=== PATIENT | male | born 1935 | race Hispanic/Latino ===

== ENCOUNTER 2019-11-05 | Emergency (ER) | payer MEDICARE, MEDICAID ==
[~2019-11-05] MED LIST: AMLODIPINE10 MG OR; ASA LO-DOSE81 MG OR; HYDROCO/APAP1 T10 OR; KEFLEX500 MG OR; LISINOPRIL20 MG OR; LISINOPRIL40 MG OR; LOPRESSOR OR; LORTAB/VICODIN1 TAB OR; NAPROSYN500 MG OR; PEPCID40 MG OR; PLAVIX75 MG OR; SIMVASTATIN20 MG OR; TOPROL XL25 MG OR; ULTRAM50 MG OR; VICODIN OR; ZOCOR20 MG OR
[2019-11-05] MEDS ORDERED: MINIPRESS2 M1 PO (10:24)
== END 2019-11-05 10:16 | disposition home or self-care (01) ==
PROC: 0T9B70Z Drainage of Bladder with Drainage Device, Via Natural or Artificial Opening (ICD-10-PCS; principal; 2019-11-05)
DX: R33.9 Retention of urine, unspecified (principal); I10 Essential (primary) hypertension; R31.9 Hematuria, unspecified

== ENCOUNTER 2019-11-05 20:01 | Emergency (ER) | payer MEDICARE, MEDICAID ==
[~2019-11-05 20:01] MED LIST changes: +MINIPRESS2 M1 PO
[2019-11-05 20:40] VITALS: BP 130/71
== END 2019-11-05 20:40 | disposition home or self-care (01) ==
LOC: ED 20:01
DX: R31.9 Hematuria, unspecified (principal); R33.9 Retention of urine, unspecified; I10 Essential (primary) hypertension

== ENCOUNTER 2019-11-10 | Emergency (ER) | payer MEDICARE, MEDICAID ==
[2019-11-10 17:55] LABS: BASO% 1 % (0-3); EOS% 3 % (0-8); IMMATURE GRANULOCYTES 0.3 % (0.0-5.0); LYMPH% 14 % (15-41); MEAN CORPUSCULAR HGB 31.2 pG CALC (26.0-32.0); MEAN CORPUSCULAR HGB CONC 32.1 g/L CALC (32.0-36.0); MONO% 9 % (2-13); NEUT# 5.51 thou/uL (1.82-7.42); NEUT% 73 % (42-76); PLATELET COUNT 184 thou/uL (130-400); RED BLOOD COUNT 2.76 mill/uL (4.70-6.10); RED CELL DISTRI WIDTH 12.7 % (11.5-15.5)
[2019-11-10 17:56] LABS: HEMATOCRIT 26.8 % (39.0-50.0); HEMOGLOBIN 8.6 g/dl (14.0-18.0); MEAN CELL VOLUME 97.1 fL CALC (80.0-100.0)
[2019-11-10 18:17] LABS: C-REACTIVE PROTEIN 4.3 mg/dL (0-0.9)
[2019-11-10 18:18] LABS: ALBUMIN 3.3 g/dL (3.2-5.0); BILIRUBIN, TOTAL 0.5 mg/dL (0.0-1.4); CREATININE 2.7 mg/dL (0.7-1.3); TOTAL PROTEIN 6.5 g/dL (6.3-8.2)
[2019-11-10] MEDS ORDERED: KEFLEX500 M1 PO (20:32)
== END 2019-11-10 20:49 | disposition home or self-care (01) ==
DX: L03.116 Cellulitis of left lower limb (principal); E86.0 Dehydration; I10 Essential (primary) hypertension; Z95.5 Presence of coronary angioplasty implant and graft

== ENCOUNTER 2019-11-13 | Emergency (ER) | payer MEDICARE, MEDICAID ==
[~2019-11-13] MED LIST changes: +KEFLEX500 M1 PO
[2019-11-13 07:02] LABS: HEMATOCRIT 27.9 % (39.0-50.0); HEMOGLOBIN 9.1 g/dl (14.0-18.0); IMMATURE GRANULOCYTES 0.3 % (0.0-5.0); MEAN CELL VOLUME 95.2 fL CALC (80.0-100.0); MEAN CORPUSCULAR HGB 31.1 pG CALC (26.0-32.0); MEAN CORPUSCULAR HGB CONC 32.6 g/L CALC (32.0-36.0); NEUT# 7.73 thou/uL (1.82-7.42); RED BLOOD COUNT 2.93 mill/uL (4.70-6.10); RED CELL DISTRI WIDTH 12.4 % (11.5-15.5)
[2019-11-13 07:24] LABS: ALBUMIN 3.3 g/dL (3.2-5.0); BILIRUBIN, TOTAL 0.6 mg/dL (0.0-1.4); CREATININE 2.6 mg/dL (0.7-1.3); TOTAL PROTEIN 6.7 g/dL (6.3-8.2)
[2019-11-13] MEDS ORDERED: INDOMETHACIN50 MG PO (07:41)
== END 2019-11-13 08:12 | disposition home or self-care (01) ==
PROVIDERS: Emergency Medicine
DX: M10.062 Idiopathic gout, left knee (principal); I10 Essential (primary) hypertension

== ENCOUNTER 2019-11-19 | Emergency (ER) | payer MEDICARE, MEDICAID ==
[~2019-11-19] MED LIST changes: +INDOMETHACIN50 MG PO
[2019-11-19 10:37] LABS: HEMATOCRIT 27.4 % (39.0-50.0); IMMATURE GRANULOCYTES 0.4 % (0.0-5.0); MEAN CELL VOLUME 93.2 fL CALC (80.0-100.0); MEAN CORPUSCULAR HGB 30.6 pG CALC (26.0-32.0); MEAN CORPUSCULAR HGB CONC 32.8 g/L CALC (32.0-36.0); NEUT# 4.9 thou/uL (1.82-7.42); RED BLOOD COUNT 2.94 mill/uL (4.70-6.10); RED CELL DISTRI WIDTH 11.9 % (11.5-15.5)
[2019-11-19] MEDS ORDERED: TRAMADOL HCL50 MG PO (10:42)
[2019-11-19] MEDS ORDERED: DOXAZOSIN1 MG PO (10:42)
[2019-11-19] MEDS ORDERED: INDOMETHACIN50 MG PO (10:42)
[2019-11-19] MEDS ORDERED: FINASTERIDE5 MG PO (10:43)
[2019-11-19] MEDS ORDERED: TAMSULOSIN HCL0.4 MG PO (10:43)
[2019-11-19] MEDS ORDERED: NORVASC5 M1 PO (10:43)
[2019-11-19 10:56] LABS: ALBUMIN 3.9 g/dL (3.2-5.0); BILIRUBIN, TOTAL 0.6 mg/dL (0.0-1.4); CREATININE 3.4 mg/dL (0.7-1.3); TOTAL PROTEIN 7.2 g/dL (6.3-8.2)
[2019-11-19 10:59] LABS: POTASSIUM 5.8 mmol/l (3.5-5.1)
[2019-11-19 11:29] LABS: URINE BILIRUBIN - DIPSTICK NEGATIVE (NEGATIVE); URINE BLOOD DIPSTICK NEGATIVE (NEGATIVE); URINE COLOR YELLOW; URINE GLUCOSE - DIPSTICK NEGATIVE (NEGATIVE); URINE KETONE NEGATIVE (NEGATIVE); URINE LEUK ESTERASE NEGATIVE (NEGATIVE); URINE NITRITE - DIPSTICK NEGATIVE (Negative); URINE PH 6.5 (4.5-8.0); URINE PROTEIN - DIPSTICK NEGATIVE (NEG-TRACE); URINE UROBILINOGEN - DIPSTICK 0.2 E.U./dL (0.2)
== END 2019-11-19 12:21 | disposition home or self-care (01) ==
PROVIDERS: Emergency Medicine
DX: R53.1 Weakness (principal); I12.9 Hypertensive chronic kidney disease with stage 1 through stage 4 chronic kidney disease, or unspecified chronic kidney disease; N18.9 Chronic kidney disease, unspecified; D64.9 Anemia, unspecified; I10 Essential (primary) hypertension; R42 Dizziness and giddiness; R11.0 Nausea

== ENCOUNTER 2020-01-10 18:00 | Inpatient (IN) | payer MEDICARE, MEDICAID ==
[~2020-01-10] VITALS: Ht 162.6 cm; Wt 54.3 kg
[~2020-01-10 18:00] MED LIST changes: +DOXAZOSIN1 MG PO; +FINASTERIDE5 MG PO; +NORVASC5 M1 PO; +TAMSULOSIN HCL0.4 MG PO; +TRAMADOL HCL50 MG PO
--- NOTE | 2020-01-10 18:08 | NUR ---
PT TO ROOM VIA WHEELCHAIR.
--- NOTE | 2020-01-10 19:01 | NUR ---
PT IS HOT TO TOUCH,ST 112BPM,MOIST PINK SKIN.PT HAS ANINDWELLIMNG SOLIS CATH DAUGHTER STATES CATH WAS INSERTED NOV 29 BY PMD THERE IS 100CC URINE IN SOLIS LEG BAG.IV FLUIDS NS WIDE OPEN TO LAC IV CATH.NO COUGH NO CONGESTION.DENIES SORE THROAT.
[2020-01-10 19:02] LABS: HEMATOCRIT 30.9 % (39.0-50.0); IMMATURE GRANULOCYTES 0.4 % (0.0-5.0); MEAN CELL VOLUME 93.4 fL CALC (80.0-100.0); MEAN CORPUSCULAR HGB 30.2 pG CALC (26.0-32.0); MEAN CORPUSCULAR HGB CONC 32.4 g/dL CAL (32.0-36.0); NEUT# 16.09 thou/uL (1.82-7.42); RED BLOOD COUNT 3.31 mill/uL (4.70-6.10)
[2020-01-10 19:38] LABS: CREATININE 2.6 mg/dL (0.7-1.3); POTASSIUM 4.7 mmol/l (3.5-5.1); TOTAL PROTEIN 8.6 g/dL (6.3-8.2)
[2020-01-10 19:44] LABS: ALBUMIN 4.7 g/dL (3.2-5.0); BILIRUBIN, TOTAL 1.4 mg/dL (0.0-1.4)
--- NOTE | 2020-01-10 20:32 | NUR ---
DR Tamayo INFORMED OF CONTINUED FEVER ST WITHOUT ECTOPY PINK MOIST ORAL MUCOSA.
--- NOTE | 2020-01-10 21:05 | NUR ---
I EMPTIED 300CC CLEAR YELLOW URINE FROM LEG BAG TO INDWELLING SOLIS BAG
[2020-01-10 21:29] LABS: URINE BILIRUBIN - DIPSTICK NEGATIVE (NEGATIVE); URINE BLOOD DIPSTICK LARGE (NEGATIVE); URINE COLOR YELLOW; URINE GLUCOSE - DIPSTICK NEGATIVE (NEGATIVE); URINE KETONE NEGATIVE (NEGATIVE); URINE LEUK ESTERASE LARGE (NEGATIVE); URINE NITRITE - DIPSTICK NEGATIVE (Negative); URINE PROTEIN - DIPSTICK TRACE mg/dL (NEG-TRACE); URINE UROBILINOGEN - DIPSTICK 0.2 E.U./dL (0.2)
[2020-01-10 21:42] LABS: URINE RBC TNTC RBC/hpf (0-5); URINE SQUAMOUS EPITHELIAL CELL FEW EPI/hpf (0-FEW); URINE WBC TNTC WBC/hpf (0-5)
[2020-01-10 21:43] LABS: URINE BACTERIA MODERATE hpf
--- NOTE | 2020-01-10 22:13 | NUR ---
PT HAS SUDDEN BREAK IN FEVER HR AND BP ARE ALSO MORE WNL.PT APPEARS MORE COMFORTABLE NO COUGH NOR CONGESTION.NO DIAPHORESIS.SR WITHOUT ECTOPY.
--- NOTE | 2020-01-10 23:35 | NUR ---
PT IS A/O X3 NO COUGH NO CONGESTION,NO N/V SR NO TACHYCARDIA.IV FLUID BOLUS IS COMPLETE.
--- NOTE | 2020-01-11 00:25 | NUR ---
PHONE REPORT TO NURSE BUSTOS
[2020-01-11 00:30] VITALS: BP 124/61
--- NOTE | 2020-01-11 00:30 | NUR ---
PT TRANSPORTED TO [address] MS IN IMPROVED STABLE CONDITION
--- NOTE | 2020-01-11 00:30 | NUR ---
PATIENT ARRIVED VIA [facility] WITH AG RN. RESP EVEN AND UNLABORED, O2 AT 2L. NO S/S OF DISTRESS NOTED. SOLIS DRAINING IN A LEG BAG, YELLOW AND CLOUDY. ORIENTED TO ROOM, CALL LIGHT, AND BED. PATIENT INFORMED TO CALL WITH ANY QUESTIONS OR CONCERNS. FALL PERCAUTIONS IN PLACE.VITAL SIGNS TAKEN. COVID SWAB PENDING RESULTS.
[2020-01-11 03:44] VITALS: BP 149/74
--- NOTE | 2020-01-11 04:15 | NUR ---
PATIENT RESTING WITH EYES CLOSED. RESP EVEN AND UNLABORED. NO S/S DISTRESS NOTED.
[2020-01-11 06:11] LABS: HEMOGLOBIN 8.4 g/dl (14.0-18.0); IMMATURE GRANULOCYTES 1.2 % (0.0-5.0); MEAN CELL VOLUME 92.9 fL CALC (80.0-100.0); MEAN CORPUSCULAR HGB CONC 32.3 g/dL CAL (32.0-36.0); NEUT# 24.01 thou/uL (1.82-7.42); RED BLOOD COUNT 2.8 mill/uL (4.70-6.10)
--- NOTE | 2020-01-11 07:15 | NUR ---
CHANGE OF SHIFT REPORT RECEIVED FROM JSESICA BUSTOS.
[2020-01-11 07:35] LABS: CREATININE 2.4 mg/dL (0.7-1.3); POTASSIUM 4.9 mmol/l (3.5-5.1)
[2020-01-11] MEDS ORDERED: ALLOPURINOL100 MG PO (10:30)
[2020-01-11] MEDS ORDERED: NORVASC10 M1 PO (10:32)
[2020-01-11] MEDS ORDERED: DOXAZOSIN PO (10:32)
--- NOTE | 2020-01-11 11:09 | NUR ---
SOLIS 16 FR REPLACED WITH 5CC BALLOON. PT TOLERATED PROCEDURE WELL. SOLIS ANCHORED TO LEFT THIGHT, HANGING BELOW BLADDER LEVEL
[2020-01-11 15:43] VITALS: BP 155/68
--- NOTE | 2020-01-11 16:00 | NUR ---
PT RESTING COMFORTABLY IN BED. NO S/S OF DISTRESS. BLADDER NON-PALPABLE. CALL LIGHT WITHIN EASY REACH. PT REQUETED FRESH WATER. ICE WATER PROVIDED AND PATIENT DRANK 1 CUP. PT AGREES TO NOTIFY PREFITTER DOORS OF ANY CONCERNS
--- NOTE | 2020-01-11 18:43 | NUR ---
PT'S URINE BLOOD TINGED, BOILER WASHER WILL CONTINUE TO MONITOR
[2020-01-11 19:35] VITALS: BP 134/64
--- NOTE | 2020-01-11 20:00 | NUR ---
PATIENT RESTING IN BED AT THIS TIME WITH O2 VIA NASAL CANNULA IN PLACE. PATIENT IS AWAKE ALERT AND ORIENTEDX3 ON ISOLATION IN NEG PRESSURE ROOM AWAITING COVID 19 TESTING RESULTS. SOLIS CATH PATENT AND DRAINING NAYAN URINE. PATIENT PROVIDED WITH FRESH WATER TO DRINK. SAFETY PRECAUTIONS REINFORCED. CALL LIGHT IN REACH. WILL CONT TO MONITOR.
--- NOTE | 2020-01-12 00:36 | NUR ---
APPEARS SLEEPING AT THIS TIME WITH EYES CLOSED. RESP ARE EVEN AND UNLABORED. IVF NS PATENT AND INFUSING AT 125CC/HR VIA LAC SITE. SITE REMAINS HEALTHY AT THIS TIME. SOLIS PATENT AND DRAINING CLEARER NAYAN URINE AT THIS TIME. CALL LIGHT IN REACH. WILL CONT TO MONITOR.
[2020-01-12 04:00] VITALS: BP 137/64
--- NOTE | 2020-01-12 04:12 | NUR ---
PATIENT RESTING IN BED AT THIS TIME-EASY TO AROUSE. LAB WORK DRAWN WITHOUT ANY DIFFICULTY FRON RIGHT AC SITE. SPEC OBTAINED AND SENT TO LAB. IVF NS PATENT AND INFUSING VIA LEFT AC SITE AT 125CC/HR. SITE REMAINS HEALTHY. SOLIS PATENT AND DRAINING NAYAN URINE WITHOUT ANY DIFFICULTY. ISOLATION PRECAUTIONS MAINTAINED IN NEG PRESSURE ROOM. COMMUNICATED THRU PROPERTY DAMAGE CLAIMS ADJUSTOR LISA HAND. SAFETY PRECAUTIONS REINFORCED. CALL LIGHT IN REACH. WILL CONT TO MONITOR.
[2020-01-12 04:38] LABS: HEMATOCRIT 25.9 % (39.0-50.0); HEMOGLOBIN 8.3 g/dl (14.0-18.0); MEAN CELL VOLUME 93.5 fL CALC (80.0-100.0); RED BLOOD COUNT 2.77 mill/uL (4.70-6.10); RED CELL DISTRI WIDTH 14.2 % (11.5-15.5)
[2020-01-12 04:53] LABS: CREATININE 2.4 mg/dL (0.7-1.3); POTASSIUM 4.6 mmol/l (3.5-5.1)
[2020-01-12 05:03] LABS: ALBUMIN 2.9 g/dL (3.2-5.0); TOTAL PROTEIN 5.9 g/dL (6.3-8.2)
--- NOTE | 2020-01-12 07:15 | NUR ---
CHANGE OF SHIFT REPORT RECEIVED FROM JESSICA SIU. PT IN SUPINE POSITION. NO S/S OF DISTRESS.
--- NOTE | 2020-01-12 12:00 | NUR ---
PATIENT IS STABLE. ANTIBIOTIC ADMINISTERED ORDERED. NORMAL SALINE RUNNING AT 125ML/HR. NO S/S OF DISTRESS. URINE IN BAG YELLOWISH IN COLOR. CALL LIGHT WITHIN EASY REACH.
[2020-01-12 16:00] VITALS: BP 136/66
--- NOTE | 2020-01-12 17:19 | NUR ---
received a call from lab pt is negative for covid testing
[2020-01-12 18:58] VITALS: BP 145/57
--- NOTE | 2020-01-12 20:00 | NUR ---
PATIENT RESTING IN BED AT THIS TIME WITH EYES CLOSED. RESPS ARE EVEN AND UNLABORED. SOLIS PATENT AND DRAINING YELLOW URINE. IVF NS PATENT AND INFUCING VIA LEFT AC SITE AT 125CC/HR. SITE IS HEALTHY. CALL LIGHT IN REACH. WILL CONT TO MONITOR.
--- NOTE | 2020-01-12 23:53 | NUR ---
PATIENT RESTING IN BED-IVF PATENT AND INFUSING VIA LEFT AC SITE AT 125CC/HR. SOLIS PATENT AND DRAING YELLOW URINE. TEMP-100.1 WILL CONT TO MONITOR. CALL LIGHT IN REACH. WILL CONT TO MONITOR.
[2020-01-13 03:47] VITALS: BP 143/61
[2020-01-13 05:20] LABS: HEMATOCRIT 24.9 % (39.0-50.0); HEMOGLOBIN 8.1 g/dl (14.0-18.0); IMMATURE GRANULOCYTES 0.5 % (0.0-5.0); MEAN CELL VOLUME 92.6 fL CALC (80.0-100.0); MEAN CORPUSCULAR HGB 30.1 pG CALC (26.0-32.0); MEAN CORPUSCULAR HGB CONC 32.5 g/dL CAL (32.0-36.0); NEUT# 11.72 thou/uL (1.82-7.42); RED BLOOD COUNT 2.69 mill/uL (4.70-6.10)
[2020-01-13 05:32] LABS: CREATININE 2.1 mg/dL (0.7-1.3)
--- NOTE | 2020-01-13 05:52 | NUR ---
Patient was asked if he would like to take a shower at 1906. His response was its cold and would like to shower tomorrow morning.
[2020-01-13 08:00] VITALS: BP 151/77
--- NOTE | 2020-01-13 09:00 | NUR ---
PT IS AWAKE, ALERT, ORIENTED. PT SPEAKS IVORIAN ONLY. LUNGS CLEAR, RA. SOLIS CATHETER IN PLACE, DRAINS YELLOW URINE. PT REPORTS PAIN TO RIGHT KNEE, NO OBVIOUS INJURY SEEN. TYLENOL PROVIDED.
--- NOTE | 2020-01-13 13:00 | NUR ---
PT SEEN BY DR LOUIE TODAY, PLAN OF CARE IS IV ABX. PT REMAINS BEFORE. SOLIS CATHETER WNL.
[2020-01-13 16:00] VITALS: BP 143/66
--- NOTE | 2020-01-13 18:35 | NUR ---
FAMILY UPDATED ON PLAN OF CARE.. PT PROVIDED TYLENOL AGAIN FOR KNEE PAIN AND LOW GRADE FEVER.
[2020-01-13 19:15] VITALS: BP 117/61
--- NOTE | 2020-01-13 20:00 | NUR ---
PATIENT RESTING IN BED AT THIS TIME WITH EYES CLOSED-APPEARS SLEEPING AT THIS TIME. RESP ARE EVEN AND UNLBORED. SOLIS CATH PATENT AND DRAINING YELLOW URINE. IVF NS PATENT AND INFUSING VIA LEFT FOREARM SITE AT 100CC/HR. SITE IS HEALTHY AT THIS TIME. CALL LIGHT IN REACH. WILL CONT TO MONITOR.
--- NOTE | 2020-01-14 03:40 | NUR ---
APPEARS SLEEPING AT THIS TIME WITH EYES CLOSED. RESPS ARE EVEN AND UNLABORED. IVF PATENT AND INFUSING AT 125CC/HR VIA LEFT FOREARM SITE. SOLIS PATENT AND DRAINING YELLOW URINE. CALL LIGHT IN REACH. WILL CONT TO MONITOR.
[2020-01-14 04:29] VITALS: BP 135/66
[2020-01-14 07:24] VITALS: BP 136/67
--- NOTE | 2020-01-14 08:02 | NUR ---
PT AFEBRILE HE RESTS IN THE BED, NOW EATING BREAKFAST. SOLIS DRAINS CLEAR YELLOW URINE.
--- NOTE | 2020-01-14 10:36 | NUR ---
PT HAS HAD TELEMEDICINE CONSULT WITH DR CAZARES THIS MORNING. PT WITH PAIN TO RIGHT KNEE, WILL REQUEST NARCOTIC WHEN PHYSICIAN ROUNDS. SCROTUM SEEN WITH REDNESS, PT WITH SOME DISCOMFORT TO AREA.
[2020-01-14 15:45] VITALS: BP 134/69
--- NOTE | 2020-01-14 17:58 | NUR ---
PT RECEIVED TRAMADOL FOR PAIN RELIEF TO RIGHT KNEE, SEEN MORE COMFORTABLE. PT AWARE OF POSSIBLE DISCHARGE TO HOME TOMORROW. NAD.
[2020-01-14 18:54] VITALS: BP 158/69
--- NOTE | 2020-01-14 19:35 | NUR ---
patient was asked if he wanted a shower at this time 1853. He refused, he said he would like one in the morning.
--- NOTE | 2020-01-14 20:20 | NUR ---
ASSESSMENT COMPLETED. IV SITE PATENT AND INFUSING ORDERED IVF. PT. CONTINUES TO C/O RIGHT KNEE PAIN AND MEDICATED WITH ORDERED PRN TRAMADOL AND WARM PACK APPLIED; WILL REASSESS. SOLIS CATHETER INTACT AND DRAINING AT GRAVITY LEVEL. UPDATED ON POC; DENIES FURTHER NEEDS. CALL LIGHT IS IN REACH. WILL CONTINUE TO MONITOR.
--- NOTE | 2020-01-14 22:40 | NUR ---
PT. CONTINUES TO C/O RIGHT KNEE PAIN AND MEDICATED WITH ORDERED PRN TYLENOL WILL REASSESS AND NEW WARM PACK APPLIED. CALL LIGHT IS IN REACH.
--- NOTE | 2020-01-14 23:30 | NUR ---
TEMP IS 100.4, COOL WASH CLOTH PROVIDED WILL REASSESS. PT. WAS PREV. MEDICATED WITH ORDERED PRN TYLENOL FOR PAIN, WILL SEE IF THIS TAKES EFFECT TO DECREASE TEMP.
--- NOTE | 2020-01-15 00:20 | NUR ---
REASSESSED TEMP AND NOW 97.5. DENIES FURTHER NEEDS. CALL LIGHT IS IN REACH.
--- NOTE | 2020-01-15 03:42 | NUR ---
PT. RESTING IN BED WITH NO DISTRESS NOTED; DENIES NEEDS. CALL LIGHT IS IN REACH.
[2020-01-15 03:44] VITALS: BP 132/60
[2020-01-15 05:24] LABS: HEMATOCRIT 25.6 % (39.0-50.0); HEMOGLOBIN 8.3 g/dl (14.0-18.0); MEAN CELL VOLUME 91.8 fL CALC (80.0-100.0); MEAN CORPUSCULAR HGB 29.7 pG CALC (26.0-32.0); MEAN CORPUSCULAR HGB CONC 32.4 g/dL CAL (32.0-36.0); RED BLOOD COUNT 2.79 mill/uL (4.70-6.10); RED CELL DISTRI WIDTH 13.7 % (11.5-15.5)
--- NOTE | 2020-01-15 05:33 | NUR ---
pt. c/o right knee pain and medicated with ordered prn ultram, will reasses. temp 98.
[2020-01-15 05:47] LABS: ALBUMIN 2.8 g/dL (3.2-5.0); BILIRUBIN, TOTAL 0.8 mg/dL (0.0-1.4); POTASSIUM 4.8 mmol/l (3.5-5.1); TOTAL PROTEIN 5.9 g/dL (6.3-8.2)
--- NOTE | 2020-01-15 07:20 | NUR ---
CHANGE OF SHIFT REPORT RECEIVED FROM JESSICA BHATT. CALL LIGHT WITHIN EASY REACH. BED IN LOWEST POSITION. FOX RAISER WITHIN EASY REACH
[2020-01-15 08:38] VITALS: BP 155/75
--- NOTE | 2020-01-15 12:00 | NUR ---
PT IS ABLE TO COMMUNICATE NEEDS VIA BOX CAR LOADER. PT ENCOURAGED TO SIT UP ON SIDE OF BED AND EAT LUNCH. PT REQUESTED ONLY FRUITS FOR LUNCH. CONTINUE TO COMPLAIN OF RIGHT KNEE PAIN. RIGHT KNEE SLIGHTLY SWOLLEN. DR RUSS IS AWARE OF PT'S COMPLAINT
[2020-01-15 12:35] LABS: C-REACTIVE PROTEIN 13.1 mg/dL (0-0.9)
--- NOTE | 2020-01-15 14:53 | NUR ---
PT RETURNED FROM XRAY, THEY ASPIRATED 60ML OF FLUID FROM R KNEE PT TOLERATED WELL. UPON RETURNING TO THE ROOM. BECAME NAUSEATED. AND HAD DRY HEAVES COME UP NO VOMIT. ASSISTED BACK TO BED WITH 1 PERSON PRASANNA. CHELSIE TO OBSERVE AND MONITOR.
[2020-01-15 16:02] VITALS: BP 138/101
[2020-01-15 16:03] VITALS: BP 167/70
--- NOTE | 2020-01-15 16:23 | NUR ---
GAVE ULTRAM FOR FEVER OF 100.4
--- NOTE | 2020-01-15 16:44 | NUR ---
PT RESTING COMFORTABLY IN ROOM. PAIN MEDICATION EFFECTIVE. PCG NOTIFIED OF POC. WELFARE OFFICER WILL CONTINUE TO MONITOR
[2020-01-15 18:31] VITALS: BP 160/71
--- NOTE | 2020-01-15 19:37 | NUR ---
ASSESSMENT COMPLETED. NO DISTRESS NOTED; REPORTS SLIGHT PAIN TO RIGHT KNEE AT THIS TIME AND ELEVATED ONTO PILLOW; GAUZE IN PLACE; CDI. TEMP 99.8; WILL CONTINUE TO MONITOR.
--- NOTE | 2020-01-16 00:14 | NUR ---
PT. C/O BILATERAL KNEE PAIN, GREATER TO RIGHT KNEE AND MEDICATED WITH ORDERED PRN TRAMDOL AND REPOSITIONED PT. FOR COMFORT. WILL REASSESS. TEMP 99.1, WILL CONTINUE TO MONITOR.
--- NOTE | 2020-01-16 02:10 | NUR ---
PT. ASSISTED TO THE BSC AND HAD A SMALL BM AND ASSISTED BACK INTO BED. SOLIS BAG EMPTIED. CALL LIGHT IS IN REACH.
[2020-01-16 03:30] VITALS: BP 165/74
--- NOTE | 2020-01-16 03:35 | NUR ---
TEMP OF 100.3 AND C/O PAIN; MEDICATED WITH ORDERED TYLENOL AND COOL WASH CLOTH APPLIED TO FOREHEAD. WARM PACK APPLIED TO RIGHT KNEE. DENIES FURTHER NEEDS.
[2020-01-16 04:42] VITALS: BP 154/73
--- NOTE | 2020-01-16 04:42 | NUR ---
REASSESSED VS; SEE INTERVENTION. WILL CONTINUE TO MONITOR PT.
[2020-01-16 04:53] LABS: HEMATOCRIT 28.2 % (39.0-50.0); HEMOGLOBIN 9.3 g/dl (14.0-18.0); MEAN CELL VOLUME 88.7 fL CALC (80.0-100.0); MEAN CORPUSCULAR HGB 29.2 pG CALC (26.0-32.0); RED BLOOD COUNT 3.18 mill/uL (4.70-6.10); RED CELL DISTRI WIDTH 13.6 % (11.5-15.5)
[2020-01-16 05:11] LABS: CREATININE 1.9 mg/dL (0.7-1.3); POTASSIUM 4.5 mmol/l (3.5-5.1)
--- NOTE | 2020-01-16 07:25 | NUR ---
CHANGE OF SHIFT REPORT RECEIVED FROM JESSICA BHATT. PT NOTED TO BE WARM TO TOUCH. WRITE COOL CLOTH PLACED ON FOREHEAD. BLANKETS REMOVED. COOL SHEET PLACED ON PT. EMERGENCY DEPARTMENT PHYSICIAN WILL CONTINUE TO MONIOR
[2020-01-16 08:20] VITALS: BP 141/71
--- NOTE | 2020-01-16 08:30 | NUR ---
PT WITH TEMP OF Brenda.Carly LAMBERT ADMINISTERED. VAULT MECHANIC WILL CONTINUE TO MONITOR
--- NOTE | 2020-01-16 11:05 | NUR ---
VANCOMYCIN ORDERED FOR PHARMACY TO DOSE. PT PRESENTS WITH BACTEREMIA, FEVER, UTI. INITIAL BLOOD CULTURE SHOWS SERRRATIE MARCESCENS. INITIAL BLOOD CULTURE SHOWS E COLI. REPEAT BLOOD CULTURES ORDERED DUE TO PERSISTENT FEVER AND INCREASE IN WBC. T 101.2 f, SCR 2 MG/DL, CRCL 22 ML/MIN START VANCOMYCIN 750MG IV Q48H 01/14 @ 1700. DRAW VANCOMYCIN TROUGH 30 MIN PRIOR TO 4TH DOSE ON 01/20 @ 1630. GOAL TROUGH IS 15-20 MCG/ML. PHARMACY WILL CONTINUE TO FOLLOW AND DOSE APPROPRIATE.
--- NOTE | 2020-01-16 12:00 | NUR ---
COOL CLOTH AND COOL PACKS PLACED ON PT'S NAPE, GROIN AND AXILLARY AREA. PT HAS LOW GRADE FEVER. TERRAZZO WORKER APPRENTICE ENCOURAGED PT TO INCREASE FLUID INTAKE. PT DRANK 240ML OF ENSURE AND 120 ML OF WATER. TERRAZZO WORKER APPRENTICE WILL CONTINUE TO MONITOR
[2020-01-16 16:00] VITALS: BP 150/69
--- NOTE | 2020-01-16 16:14 | NUR ---
PT RESTING AFTER CONSULTATION WITH PHYSICAL THERAPY. PT IS AFEBRILE AT THIS TIME. PCG UPDATED ON POC. WARM PACK PLACED ON RIGHT KNEE WITH GOOD EFFECT. WATERPROOF BAG SEWER WILL CONTINUE TO MONITOR
[2020-01-16 19:20] VITALS: BP 135/69
--- NOTE | 2020-01-16 19:32 | NUR ---
PT SITTING IN BED. A&O X3. NO DISTRESS NOTED. PT C/O OF SOME RT HEEL PAIN BUT STATES THAT IT IS JUST TENDER TO THE TOUCH. SOLIS CATHETER IN PLACE DRAINING VIA GRAVITY. NO OTHER NEEDS AT THIS TIME. ASSESSMENT COMPLETED. DISCUSSED POC. CALL LIGHT IN REACH. CONTINUE TO MONITOR.
--- NOTE | 2020-01-17 | NUR ---
PT SLEEPING IN BED. NO DISTRESS NOTED. RESP EVEN AND UNLABORED. CONTINUE TO MONITOR
[2020-01-17 03:55] VITALS: BP 151/71
--- NOTE | 2020-01-17 05:05 | NUR ---
PT SLEEPING IN BED. RESP EVEN AND UNLABORED. CONTINUE TO MONITOR
[2020-01-17 05:12] LABS: HEMATOCRIT 25.8 % (39.0-50.0); HEMOGLOBIN 8.5 g/dl (14.0-18.0); MEAN CELL VOLUME 89.3 fL CALC (80.0-100.0); MEAN CORPUSCULAR HGB 29.4 pG CALC (26.0-32.0); MEAN CORPUSCULAR HGB CONC 32.9 g/dL CAL (32.0-36.0); RED BLOOD COUNT 2.89 mill/uL (4.70-6.10); RED CELL DISTRI WIDTH 13.7 % (11.5-15.5)
[2020-01-17 05:43] LABS: CREATININE 1.9 mg/dL (0.7-1.3); POTASSIUM 4.8 mmol/l (3.5-5.1)
--- NOTE | 2020-01-17 07:00 | NUR ---
REPORT RECEIVED FROM JAZ GERARDO. PT RESTING IN BED SEMI FOWLERS; ALERT AND ORIENTED; NICARAGUAN SPEAKING ONLY. C/O BILATERAL KNEE PAIN; RIGHT KNEE IS SWOLLEN. RESPIRATIONS EVEN AND UNLABORED ON ROOM AIR. PLAN OF CARE REVIEWED. PT ENCOURAGED TO VERBALIZE CONCERNS. STATES UNDERSTANDING. SAFETY MEASURES IN PLACE. CALL LIGHT WITHIN REACH.
[2020-01-17 08:00] VITALS: BP 140/67
--- NOTE | 2020-01-17 09:00 | NUR ---
TRAMADOL GIVEN FOR KNEE PAIN. SUPERVISOR AREA AT BEDSIDE.
--- NOTE | 2020-01-17 11:47 | NUR ---
PT note Patient is seen for functional training. He has increased right knee errythemia and pain at end ranges. His functional ROM is 20-90. He is able to get OOB to stand with min/ mod assist of 1. His motor plan for walker is not good and he loses his balance backwards. He has an Am Pac of 14 but would do well with home health follow up as he is a fall risk.
--- NOTE | 2020-01-17 12:15 | NUR ---
CAREGIVER, ETHAN BERTRAND ON DISCHARGE PLANS FOR TOMORROW.
[2020-01-17 16:00] VITALS: BP 149/71
[2020-01-17 19:30] VITALS: BP 145/66
--- NOTE | 2020-01-17 19:36 | NUR ---
PT LAYING IN BED. NO DISTRESS NOTED. PER PT HE IS FEELING BETTER. SOLIS CATHETER DRAINING VIA GRAVITY WITH CLEAR YELLOW URINE NOTED. NO OTHER NEEDS AT THIS TIME. ASSESSMENT COMEPLETED. DISCUSSED POC. CALL LIGHT IN REACH. CONTINUE TO MONITOR.
--- NOTE | 2020-01-17 22:20 | NUR ---
PT C/O OF RT KNEE PAIN. ULTRAM GIVEN. WILL REASSESS
[2020-01-18 04:05] VITALS: BP 137/64
[2020-01-18 08:20] VITALS: BP 153/70
--- NOTE | 2020-01-18 08:20 | NUR ---
ASSESSMENT IS COMPLETED: IV SITE IS FREE FROM REDNESS OR EDEMA. HR IS REG,PULSES ARE STRONG X4, ABD IS SOFT WITH ACTIVE BS. BREATH SOUNDS ARE CLEAR,BILATERALLY, R KNEE IS TENDER LOOKS BETTER NO REDNESS. SOLIS DRAINING YELLOW URINE.CONTINUE TO OSEBRVE AND MONITOR.
[2020-01-18 09:06] VITALS: BP 153/70
[2020-01-18] MEDS ORDERED: PREDNISONE10 MG PO (12:13)
[2020-01-18] MEDS ORDERED: Levaquin PO (12:15)
== END 2020-01-18 13:06 | disposition home health service (06) | DRG 872 ==
LOC: ED 18:00 → ED-I 22:31 → ED 22:48 → MS2 22:49
PROVIDERS: Emergency Medicine; Nurse Practitioner Family; ADMIT Internal Medicine; ATTEND Internal Medicine
PROC: 0T2BX0Z Change Drainage Device in Bladder, External Approach (ICD-10-PCS; principal; 2020-01-11)
PROC: 0S9C3ZZ Drainage of Right Knee Joint, Percutaneous Approach (ICD-10-PCS; 2020-01-15)
DX: A41.53 Sepsis due to Serratia (principal); N39.0 Urinary tract infection, site not specified; N17.9 Acute kidney failure, unspecified; R65.20 Severe sepsis without septic shock; N40.1 Benign prostatic hyperplasia with lower urinary tract symptoms; R33.8 Other retention of urine; I12.9 Hypertensive chronic kidney disease with stage 1 through stage 4 chronic kidney disease, or unspecified chronic kidney disease; N18.9 Chronic kidney disease, unspecified; N45.2 Orchitis; M10.061 Idiopathic gout, right knee; B96.20 Unspecified Escherichia coli [E. coli] as the cause of diseases classified elsewhere; Z20.828 Contact with and (suspected) exposure to other viral communicable diseases
CPT/HCPCS: J0692; J1650; J3370; Q3014